=== PATIENT | male | born 1945 | race Caucasian/White ===

== ENCOUNTER 2016-11-05 14:24 | Emergency (ER) | payer MEDICARE, BC ==
[2016-11-05 14:32] VITALS: BP 141/61
--- NOTE | 2016-11-05 15:46 | UC ---
Knee Pain HPI - HPI Summary HPI Summary: 71 yo male with right popliteal knee pain and calf pain and swelling hx right knee replacement 12/[address] to an from [place] no CP or SOB - History of Current Complaint Chief Complaint: UCLowerExtremity Stated Complaint: LEG PAIN Time Seen by Provider: 11/05/16 15:28 Hx Obtained From: Patient Onset/Duration: Gradual Onset, Lasting Days Severity Initially: Moderate Severity Currently: Moderate Pain Intensity: 4 Pain Scale Used: 0-10 Numeric Character: Dull, Aching Aggravating Factor(s): Movement, Weight Bearing Alleviating Factor(s): Rest Associated Signs And Symptoms: Positive: Swelling Able to Bear Weight: Yes - Allergies/Home Medications Allergies/Adverse Reactions: Allergies Allergy/AdvReac Type Severity Reaction Status Date / Time No Known Allergies Allergy Verified 06/23/15 20:59 PMH/Surg Hx/FS Hx/Imm Hx Previously Healthy: Yes Endocrine History: Dyslipidemia Other History Of: Anticoagulant Therapy - 81 mg ASA - Surgical History Surgical History: Yes Surgery Procedure, Year, and Place: [place] [facility] [place] [facility] [place], 2002 [facility] -CABG, 2003 [facility]- Bilateral hip replacement, 02/25 [facility] [place] ingu[place] w/mesh, 11/27 [facility] [place]. repair w/mesh, 2010 [facility] - bilateral arthroscopic knees - Family History Known Family History: Positive: Hypertension - Social History Alcohol Use: Weekly Substance Use Type: None Smoking Status (MU): Never Smoked Tobacco - Immunization History Most Recent Influenza Vaccination: up to date on file with [facility] Most Recent Tetanus Shot: up to date on file with [facility] Most Recent Pneumonia Vaccination: up to date on file with [facility] Review of Systems Constitutional: Negative Skin: Negative Eyes: Negative ENT: Negative Respiratory: Negative Cardiovascular: Negative Gastrointestinal: Negative Genitourinary: Negative Motor: Negative Neurovascular: Negative Musculoskeletal: Arthralgia, Myalgia Neurological: Negative Psychological: Negative Is Patient Immunocompromised?: No All Other Systems Reviewed And Are Negative: Yes Physical Exam Triage Information Reviewed: Yes Appearance: Well-Appearing, No Pain Distress, Well-Nourished Vital Signs: Initial Vital Signs Temp 97.7 F 11/05/16 14:26 Pulse 65 11/05/16 14:26 Resp 18 11/05/16 14:26 BP 141/61 11/05/16 14:26 Pulse Ox 96 11/05/16 14:26 Vital Signs Reviewed: Yes Eyes: Positive: Conjunctiva Clear ENT: Positive: Hearing grossly normal. Negative: Nasal congestion, Nasal drainage, Trismus, Muffled/hoarse voice Neck: Positive: Supple, Nontender, No Lymphadenopathy Respiratory: Positive: Lungs clear, Normal breath sounds, No respiratory distress Cardiovascular: Positive: RRR, No Murmur, Pulses Normal Musculoskeletal: Positive: Edema @ - right calf/(+) homans Neurological: Positive: Alert Psychological Exam: Normal Skin Exam: Normal Knee Pain Course/Dx - Course Course Of Treatment: Declines EMS transfer but will go directly to ER via POV. In light of new policy to no call non EMS transfers to ED the ER was not informed. AMA form signed - Differential Dx/Diagnosis Provider Diagnoses: RIght calf pain and swelling with risk factors for DVT Discharge - Discharge Plan Condition: Good Disposition: TRANS HIGHER LVL OF CARE FAC Referrals: Brian Rdz MD [Primary Care Provider] - Additional Instructions: TO ER NOW
== END 2016-11-05 15:45 | disposition short-term general hospital (02) ==
LOC: UCEAST 14:24
DX: M79.661 Pain in right lower leg (principal); E78.5 Hyperlipidemia, unspecified
CPT/HCPCS: 99211; G0463

== ENCOUNTER 2016-11-05 16:03 | Emergency (ER) | payer MEDICARE, BC ==
[2016-11-05 16:26] VITALS: BP 142/77
--- NOTE | 2016-11-05 17:15 | RAD ---
Indication: Right knee pain. 3 views of the right kidney demonstrates bipolar knee replacement. No loosening is identified. No fracture is noted. IMPRESSION: No evidence of fracture is noted. Right knee prosthesis appears in place.
--- NOTE | 2016-11-05 17:38 | RAD ---
Indication: Right Leg edema. Duplex Doppler sonography of the deep venous system of the right lower extremity deep venous system was performed. Bilaterally the common femoral veins appear patent and compressible. Right proximal greater saphenous vein, proximal deep femoral vein, femoral vein, popliteal vein, posterior tibial veins and peroneal veins appear patent and compressible. Hypoechoic complex fluid collection in the right calf measuring 11.0 x 3.5 x 1.8 cm may represent hematoma. IMPRESSION: NO EVIDENCE OF DEEP VENOUS THROMBOSIS IS IDENTIFIED.
--- NOTE | 2016-11-05 18:19 | ED ---
Mei Robbins Edward, scribed for Dipak Bowers MD on 11/05/16 at 1644 . Lower Extremity - HPI Summary HPI Summary: 71 y/o male presents to the ED from [facility] c/o R knee swelling and tightness starting one week ago. After hiking one week ago, the patient developed R leg pain starting at the R foot radiating up to the knee. The swelling and pain now is located behind the knee and at the R calf. The pain is a tight, throbbing pain. It is aggravated by turning the R foot. The pain and swelling was alleviated slightly last night with ice and elevation. Associated sx: R calf became black and blue days ago (resolved). SHx 11/23/15 R knee replacement. - History of Current Complaint Chief Complaint: EDExtremityLower Stated Complaint: RT LEG PAIN/SWELLING-SENT FROM Time Seen by Provider: 11/05/16 16:37 Hx Obtained From: Patient Onset of Pain: Days, Prior to Arrival Onset/Duration: Weeks - 1 Severity Currently: Moderate Pain Intensity: 5 Pain Scale Used: 0-10 Numeric Location: Radiates To - R knee down R calf Character Of Pain: Throbbing - Tightness Associated Signs And Symptoms: Positive: Swelling, Bruising, Knee Pain Aggravating Factor(s): Movement - of R foot Alleviating Factor(s): Elevation, Ice - Allergies/Home Medications Allergies/Adverse Reactions: Allergies Allergy/AdvReac Type Severity Reaction Status Date / Time No Known Allergies Allergy Verified 11/05/16 16:52 PMH/Surg Hx/FS Hx/Imm Hx Previously Healthy: No Endocrine/Hematology History: Reports: Hx Anticoagulant Therapy - 81 mg ASA Denies: Hx Diabetes, Hx Thyroid Disease Cardiovascular History: Reports: Hx Coronary Artery Disease, Hx Hypercholesterolemia, Hx Hypertension, Other Cardiovascular Problems/Disorders - CABG Respiratory History: Reports: Hx Sleep Apnea, Other Respiratory Problems/ Disorders - nonallergic vasomotor rhinitis, chronic cough Denies: Hx Asthma, Hx Chronic Obstructive Pulmonary Disease (COPD) GI History: Reports: Hx Gastroesophageal Reflux Disease Denies: Hx Ulcer History: Reports: Hx Benign Prostatic Hyperplasia Musculoskeletal History: Reports: Hx Arthritis - osteoarthritis hip, Hx Tendonitis - plantar tendonitis, Other Musculoskeletal History - knee joint pain Sensory History: Reports: Hx Contacts or Glasses, Hx Hearing Problem Opthamlomology History: Reports: Hx Contacts or Glasses Psychiatric History: Reports: Hx Depression - Surgical History Surgery Procedure, Year, and Place: 1988,1990 [facility] [place], 03/24 [facility] [place] cholecyst[place], 2002 [facility], 2003 [facility]- Bilateral hip replacement, 02/25 [facility] [place]- inguinal hernia repair w/mesh, 11/27 [facility] [place]- ventral hernia. repair w/mesh, 2010 [facility] - bilateral arthroscopic knees Infectious Disease History: No Infectious Disease History: Denies: Hx Clostridium Difficile, Hx Hepatitis, Hx Human Immunodeficiency Virus (HIV), Hx of Known/Suspected MRSA, Hx Shingles, Hx Tuberculosis, Hx Known/ Suspected VRE, Hx Known/Suspected VRSA, History Other Infectious Disease, Traveled Outside the [place] in Last 30 Days - Family History Known Family History: Positive: Hypertension - Social History Alcohol Use: Weekly Substance Use Type: Reports: None Smoking Status (MU): Never Smoked Tobacco Review of Systems Constitutional: Negative Eyes: Negative ENT: Negative Cardiovascular: Negative Respiratory: Negative Gastrointestinal: Negative Genitourinary: Negative Positive: Myalgia - R knee down R calf, Edema - R knee Positive: Bruising - R calf (resolved) Neurological: Negative Psychological: Normal All Other Systems Reviewed And Are Negative: Yes Physical Exam Triage Information Reviewed: Yes Vital Signs On Initial Exam: Initial Vitals Temp Pulse Resp BP Pulse Ox 97.7 F 65 17 142/77 97 11/05/16 16:22 11/05/16 16:22 11/05/16 16:22 11/05/16 16:22 11/05/16 16:22 Vital Signs Reviewed: Yes Appearance: Positive: Well-Appearing, No Pain Distress Skin: Positive: Warm, Skin Color Reflects Adequate Perfusion, Dry Head/Face: Positive: Normal Head/Face Inspection Eyes: Positive: Normal ENT: Positive: Normal ENT inspection Neck: Positive: Supple, Nontender Respiratory/Lung Sounds: Positive: Clear to Auscultation, Breath Sounds Present Cardiovascular: Positive: RRR Abdomen Description: Positive: Nontender, Soft Bowel Sounds: Positive: Present Musculoskeletal: Positive: Other - R Leg - Swollen. Pitting edema in R ankle. Well healed surgical scar. Patella blots slightly. Neurological: Positive: Normal Psychiatric: Positive: Normal, Affect/Mood Appropriate Diagnostics - Vital Signs Vital Signs Temp Pulse Resp BP Pulse Ox 11/05/16 16:22 97.7 F 65 17 142/77 97 - Laboratory Lab Statement: Any lab studies that have been ordered have been reviewed, and results considered in the medical decision making process. - Radiology KNEE XR Xray Interpretation: No Acute Changes - No evidence of fracture is noted. Right knee prosthesis appears in place. ED Physician agrees. Radiology Interpretation Completed By: Radiologist - Ultrasound No standard instances Ultrasound Interpretation: No Acute Changes - LYNETTE DOPPLER - NO EVIDENCE OF DEEP VENOUS THROMBOSIS IS IDENTIFIED. ED PHYSICIAN AGREES Ultrasound Interpretation Completed By: Radiologist Re-Evaluation - Re-Evaluation 1 Re-Evaluation Time: 17:57 Comment: Discussed imaging results Lower Extremity Course/Dx - Course Course Of Treatment: Mr. Esposito presented with a swollen and painful left knee and calf after driving to [place] and doing some hiking. He was afebrile, he had no effusion on x-ray and U/S showed no DVT. I think this is an overuse syndrome. - Diagnoses Provider Diagnoses: Overuse syndrome Discharge - Discharge Plan Condition: Stable Disposition: HOME Patient Education Materials: Knee Pain (ED), Swollen Knee Joint (ED) Referrals: Brian Rdz MD [Primary Care Provider] - 3 Days (PLEASE F/U IN 2-3 DAYS) Additional Instructions: ICE AND ELEVATE The documentation as recorded by the Mei franco Edward accurately reflects the service I personally performed and the decisions made by me, Dipak Bowers MD.
== END 2016-11-05 18:15 | disposition home or self-care (01) ==
LOC: ED 16:03
DX: M70.861 Other soft tissue disorders related to use, overuse and pressure, right lower leg (principal); M25.561 Pain in right knee; Y93.9 Activity, unspecified; Z79.01 Long term (current) use of anticoagulants
CPT/HCPCS: 99282